=== PATIENT | female | born 1960 | race African-American/Black ===

== ENCOUNTER 2021-09-20 16:17 | Emergency (ER) | payer OTHER ==
[2021-09-20 17:00] VITALS: BP 139/87; PULSE 95; TEMP 98.5; BMI 34.0
== END 2021-09-20 22:16 | disposition home or self-care (01) ==
LOC: JER 16:17
DX: J06.9 Acute upper respiratory infection, unspecified (principal)
CPT/HCPCS: 99283-25; C9803; U0003; U0005